=== PATIENT | female | born 1995 | race Caucasian/White ===

== ENCOUNTER 2019-06-10 08:06 | Day surgery (SDC) | payer OTHER ==
[~2019-06-10] VITALS: Ht 162.6 cm; Wt 60.4 kg
[2019-06-10 08:38] VITALS: BP 113/76; PULSE 79; TEMP 97.9
[2019-06-10] MEDS ORDERED: CANASA 1000MG1000 MG RC (08:38)
[2019-06-10 09:58] VITALS: BP 135/100; PULSE 103; TEMP 97.9
[2019-06-10 10:13] VITALS: BP 121/87; PULSE 84
[2019-06-10 10:36] VITALS: BP 117/83; PULSE 68
[2019-06-10 10:48] VITALS: BP 109/74; PULSE 68
[2019-06-10 12:30] VITALS: BP 109/74; BP 99/88; PULSE 56; PULSE 64
--- NOTE | 2019-06-10 13:16 | NUR ---
PT BACK FROM ENDO OR, WAS CRYING, DENIED PAIN, NAUSEA OR VOMITING AT THIS TIME. WAS ALERT, SLEEPY, REQUIRED BEING ORIENTATED TO PLACE AND TIME. WANTED TO KNOW WHAT HAD HAPPENED, IF SHE WAS ALRIGHT, WAS APOLIGIZING FOR CRYING. WAS AWARE OF HER , LISA. WILL OFFER FLUIDS. WILL CONT TO MONITOR.
--- NOTE | 2019-06-10 13:21 | NUR ---
PT CONTINUES TO BE WEEPY. IS ALERT TO NAME, CONTINUES TO ASK QUESTIONS ABOUT WHAT HAPPENED, AND IF EVERYTHING WAS OK WITH HER. DENIED PAIN OR NAUSEA OR DIARRHEA AT THIS TIME. IS WITH HER. HE WAS REMINDING HER THAT SHE WAS OK, EVERYING WENT FINE DURING THE PROCEDURE. SHE CONTINUED TO APOLOGIZE FOR CRYING. OFFERED FLUIDS TO PT, COKE COLA AND WATER WAS GIVEN. CHOCOLATE PUDDING WAS OFFERED, PT TOOK A FEW BITES AND REQUESTED CRACKERS. PT STATED SHE WAS VERY TIRED AND DIDNT FEEL MUCH LIKE EATING. WILL CONT TO MONITOR
--- NOTE | 2019-06-10 13:35 | NUR ---
PT SITTING UP MORE. DRINKING WATER AND ATE CRACKERS AND PUDDING. STATES,'JUST A LITTLE NAUSEOUS' ASKED PT IF SHE WOULD LIKE TO TRY SOMETHING FOR NAUSEA. PT AND BOTH STATED, WOULD LIKE TO WAIT ALITTLE BIT, INTERESTED IN GOING HOME SOON. THIS NURSE TOLD BOTH SHE AND THAT I WOULD LIKE TO GET ANOTHER SET OF VS AND SEE HOW SHE FEELS IN ANOTHER 15-20 MIN. DIDNT WANT TO DC IF PT WASNT KEEPING FOOD AND FLUIDS DOWN. PT WAS ALERT AND ORIENTATED, STILL ALITTLE SLEEPY AND WEEPY. WILL CONT TO MONITOR.
--- NOTE | 2019-06-10 13:42 | NUR ---
PT PUT CALL LIGHT ON, STATED SHE WAS NAUSEATED. WAS GIVEN EMESIS BAG. PT VOMITED X1. IV ZOFRAN 4MG WAS GIVEN. WET WASHCLOTH GIVEN FOR COMFORT. AT PT SIDE, WILL CONT TO MONITOR PT PROGRESS AND EFFECTIVENESS OF ZOFRAN. DENIES PAIN.
--- NOTE | 2019-06-10 13:46 | NUR ---
PT STATES FEELING BETTER AFTER VOMITING. UP TO THE BATHROOM WITH ASSISTANCE OF HER . VOIDED WITHOUT DIFFICULTY. IV DISCONTINUED TO RIGHT ARM. PT TO GET DRESSED. PT A/OX3 DENIES FURTHER N/V AT THIS TIME.
--- NOTE | 2019-06-10 13:50 | NUR ---
PT STATED SHE WAS JUST ALITTLE NAUSEOUS DURING MOVEMENT AND WHEN SHE WAS GETTING DRESSED. THIS NURSE SPOKE WITH DR QUIJANO ABOUT PT NAUSEA. ORDERED SL ZOFRAN 4MG STAT AND WAS GOING TO CALL IN AN ORDER PO ZOFRAN TO HER LISTED PHARMACY IN [facility]. ZOFRAN SUBLINGUALLY ACTED QUICKLY PT REPORTED AND WAS GLAD A PERSCRIPTION WAS CALLED IN FOR HER, 'JUST IN CASE'. SHE STATES 'SHE GETS A QUEASY STOMACH'. DC INSTRUCTIONS WERE GIVEN TO PT AND SPOUSE. PT VOICED UNDERSTANDING. PT TAKEN BY TO FAMILY VEHICLE TO FAMILY HOME
--- NOTE | 2019-06-10 13:59 | NUR ---
1230..DOSE OF SUBLINGUAL ZOFRAN TAKEN OUT OF MED CART. DOSE WAS DROPPED ON THE FLOOR IN PT ROOM. DOSE WAS DISCARDED AND ANOTHER TAKEN OUT AND GIVEN TO PT. AHRN
== END 2019-06-10 12:40 | disposition home or self-care (01) ==
LOC: SDCO 08:06
DX: K51.90 Ulcerative colitis, unspecified, without complications (principal); Z88.0 Allergy status to penicillin
CPT/HCPCS: J2250; J2405; J3010; J7030